=== PATIENT | male | born 1950 | race Two or more races ===

== ENCOUNTER 2023-01-28 21:11 | Emergency (ER) | payer MEDICARE, OTHER ==
[~2023-01-28] VITALS: Ht 147.3 cm; Wt 61.4 kg
[2023-01-28 21:35] VITALS: TEMP 98.6
[2023-01-28] MEDS ORDERED: ACETAMINOPHEN 500 MG TABLET PO ONE (23:45)
[2023-01-29] MEDS ORDERED: ACET-3385 PO (00:27)
[2023-01-29 00:56] VITALS: BP 143/75; PULSE 63; RESP 16
== END 2023-01-29 00:59 | disposition home or self-care (01) ==
LOC: EMS 21:13
DX: S20.211A Contusion of right front wall of thorax, initial encounter (principal); W11.XXXA Fall on and from ladder, initial encounter; Y93.89 Activity, other specified; Y92.89 Other specified places as the place of occurrence of the external cause; Y99.8 Other external cause status
CPT/HCPCS: 71101; 93005; 99283